=== PATIENT | female | born 2000 | race Caucasian/White ===

== ENCOUNTER 2023-07-03 21:07 | Emergency (ER) | payer MEDICAID ==
[~2023-07-03] VITALS: Ht 152.4 cm; Wt 50.4 kg
[2023-07-03 21:54] VITALS: BP 129/75; PULSE 84; RESP 17; TEMP 97.9; O2SAT 100
[2023-07-04 00:30] LABS: APPEARANCE,URINE CLOUDY (CLEAR); BILIRUBIN,URINE NEGATIVE (NEGATIVE); BLOOD, URINE 3+ (NEGATIVE); COLOR,URINE YELLOW (YELLOW); LEUKOCYTE ESTERASE ,URINE TRACE (NEGATIVE); NITRITE, URINE NEGATIVE (NEGATIVE); PH,URINE 5.5 (5.0-9.0); PROTEIN,URINE 2+ (NEGATIVE); UGLUCOSE NEGATIVE (NEGATIVE); UROBILINOGEN,URINE 0.2 EU/dL (0.2 - 1)
[2023-07-04 00:38] LABS: BACTERIA,URINE >30 (MANY) /HPF (None Seen); MUCUS,URINE 1+ /LPF (None Seen); RBC,URINE 11-20 (MOD) /HPF (0-5); SQUAMOUS EPITHELIAL CELL,UR 0-3 (FEW) /LPF (0-3 (FEW)); WBC,URINE TOO MANY TO COUNT /HPF (0-5)
[2023-07-04] MEDS ORDERED: cefTRIAXone 500 MG in LIDOCAINE MPF 1% 1 ML IM ONE (01:15)
[2023-07-04] MEDS ORDERED: LIDOCAINE MPF 1% 5 ML ONE (01:19)
[2023-07-04] MEDS ORDERED: cefTRIAXone 500 MG VIAL ONE (01:19)
[2023-07-04] MEDS ORDERED: METR-435 PO (01:39)
[2023-07-04] MEDS ORDERED: DOXY-690 PO (01:39)
[2023-07-04] MEDS ORDERED: CEPH-588 PO (01:40)
[2023-07-04 02:08] VITALS: BP 97/64; PULSE 75; RESP 17; TEMP 98.7; O2SAT 99
== END 2023-07-04 02:09 | disposition home or self-care (01) ==
LOC: MED 21:07
DX: N30.00 Acute cystitis without hematuria (principal); N76.0 Acute vaginitis; B96.89 Other specified bacterial agents as the cause of diseases classified elsewhere; Z79.899 Other long term (current) drug therapy
CPT/HCPCS: 81001; 81025; 87086; 87210; 87491; 96372; 99284; J0696; J2001